=== PATIENT | female | born 1970 | race Caucasian/White ===

== ENCOUNTER → 2016-08-24 | Outpatient (CLI) | payer BC ==
[~2016-08-24] MED LIST: BCPILLS PO; BUPRTAB PO; CHOL100027 PO; FLUO20CA35 PO; INSPMPNVLG; LEVO112T2 PO; LEVO125T72 PO; LEVO137T3 PO; LEVOTAB2 PO; ONDA4TAB7 SL; PRLSR20 PO; SIMV80TA2 PO; [UNRECOGNIZED DRUG - OTHER] PO
--- NOTE | 2016-08-24 12:48 | MAMMOGRAPHY REPORT ---
BILATERAL DIGITAL SCREENING MAMMOGRAM TOMOSYNTHESIS WITH CAD: 08/24/2016 CLINICAL HISTORY: Routine screening. Patient has no complaints. TECHNIQUE: Breast tomosynthesis in addition to standard 2D mammography was performed. Current study was also evaluated with a Computer Aided Detection (CAD) system. COMPARISON: Comparison is made to exams dated: 08/23/2015 mammogram, 08/19/2014 mammogram, 08/20/2012 mammogram, 08/20/2012 ultrasound, 08/10/2011 mammogram, and 08/18/2013 mammogram - [facility]. BREAST COMPOSITION: The tissue of both breasts is extremely dense, which lowers the sensitivity of mammography. FINDINGS: No suspicious masses, calcifications, or areas of architectural distortion are noted in e ither breast. There has been no significant interval change compared to prior exams. IMPRESSION: ACR BI-RADS CATEGORY 1: NEGATIVE There is no mammographic evidence of malignancy. A 1 year screening mammogram is recommended. The p atient will receive written notification of the results. Approximately 10% of breast cancers are not detected with mammography. A negative mammographic repor t should not delay biopsy if a clinically suggestive mass is present. Diamond Kurtz M.D. /:08/24/2016 11:58:46 Dry Chain Worker: Gabriela Khoury, [facility] letter sent: Normal 1/2 BI-RADS Code: ACR BI-RADS Category 1: Negative
== END | disposition home or self-care (01) ==
LOC: C.MAMM 08:43
PROVIDERS: ATTEND Nurse Practitioner Family
DX: Z12.31 Encounter for screening mammogram for malignant neoplasm of breast (principal)

== ENCOUNTER 2016-09-20 21:11 | Emergency (ER) | payer BC ==
[~2016-09-20] VITALS: Ht 157.5 cm; Wt 67.5 kg
[~2016-09-20 21:11] MED LIST changes: -BCPILLS PO; -LEVO137T3 PO; -[UNRECOGNIZED DRUG - OTHER] PO
[2016-09-20 21:13] VITALS: TEMP 36.6; Ht 157.5 cm; Wt 67.5 kg
[2016-09-20] MEDS ORDERED: SODIUM CHLORIDE 0.9% 1000ML 2,000 ML IV STA (21:52)
[2016-09-20] MEDS ORDERED: ONDANSETRON INJ 2 MG/ML 2 ML VIAL IV STA (21:52)
[2016-09-20] MEDS ORDERED: BCPILLS PO (22:14)
[2016-09-20] MEDS ORDERED: [UNRECOGNIZED DRUG - OTHER] PO (22:14)
[2016-09-20 22:15] LABS: BASO % 0.6 %; BASO ABS # 0.08 K/uL (0-0.2); COMPLETE YES; EOS % 0.4 %; HEMATOCRIT 42.8 % (37-47); IG% 0.4 %; LYMPH % 19.7 %; LYMPH ABS # 2.76 K/uL (1.2-3.4); MEAN CELL VOLUME 89.9 fL (80-100); MEAN CORPUSCULAR HEMOGLOBIN 30.3 pg (25-34); MEAN CORPUSCULAR HGB CONC 33.6 g/dl (32-36); MEAN PLATELET VOLUME 11.8 fL (7.4-10.4); MONO % 4.9 %; PLATELET COUNT 229 K/uL (130-400); RED BLOOD COUNT 4.76 M/uL (4.2-5.4); WHITE BLOOD COUNT 14.02 K/uL (4.8-10.8)
[2016-09-20] MEDS ORDERED: LEVO137T3 PO (22:15)
[2016-09-20 22:22] LABS: BUN/CREATININE RATIO 21.2 (10-20); CREATININE 1.3 mg/dl (0.60-1.20); MAGNESIUM 1.9 mg/dl (1.8-2.4); POTASSIUM 3.7 mmol/L (3.5-5.1)
[2016-09-20 22:24] LABS: CALCIUM 9.5 mg/dl (8.5-10.1)
[2016-09-20 22:33] LABS: ALB/GLOB RATIO 1.1 (0.9-2); THYROID STIMULATING HORMONE 0.312 uIu/ml (0.300-4.500)
[2016-09-20 22:36] LABS: VEN BLOOD GAS BASE EXCESS 0.5 mmol/L; VENOUS BLOOD GAS PCO2 38 mmHg (38.0-50.0); VENOUS BLOOD GAS PO2 27 mmHg
[2016-09-20 22:37] LABS: VEN BLD GAS O2 SATURATION < 60.0 %
[2016-09-20 23:16] LABS: URINE APPEARANCE CLEAR (CLEAR); URINE BILIRUBIN NEG (NEG); URINE COLOR YELLOW; URINE NITRITE NEG (NEG); URINE SPECIFIC GRAVITY 1.037 (1.000-1.030); UROBILINOGEN NEG (NEG); ZZUR CULT IF INDIC CLEAN CATCH NO
[2016-09-20 23:22] LABS: MANUAL MICROSCOPIC REQUIRED? NO; REVIEW REQ? NO
--- NOTE | 2016-09-21 00:20 | EMERGENCY ROOM VISIT NOTE ---
History First contact with patient: 21:43 Chief Complaint: HYPERGLYCEMIA Stated Complaint: DIABETIC, [facility] Nursing Triage Summary: pt reports NV today , with high BSG at home today , + ketones in urine at home , uses insullin pump and adjusted but not feeling better History of Present Illness The patient is a 46 year old female who presents to the Emergency Department by private vehicle for evaluation of her elevated blood glucose levels. The patient reports that she was running on the treadmill today when she noticed her blood sugar began to increase. She noticed that her home was not working appropriately. She changed her needle and dosed herself. She has felt nausea as well as dizziness. The patient reports that she typically runs in the 1 teens, but most recent was found to be above 250. She was concerned and prompted her visit to the emergency department today. She rates her current discomfort as a 7/10. She denies any fevers, chills, recent illness, headaches , lightheadedness, nausea, vomiting, or abdominal pain. Review of Systems A complete 10-point Review of Systems was discussed with the patient, with pertinent positives and negatives listed in the History of Present Illness. All remaining Review of Systems questions can be considered negative unless otherwise specified. Social History Smoking Status: Former Smoker Alcohol Use: none Drug Use: none Marital Status: Occupation Status: employed Current/Historical Medications Scheduled Control Pills ( Control Pills), 1 TAB PO DAILY Bupropion Hcl (Wellbutrin Xl), 150 MG PO DAILY Fluoxetine (Prozac), 20 MG PO DAILY Insulin Aspart (novoLOG INSULIN PUMP ), 1 EA N/A UD Levothyroxine Sodium (Levothyroxine Sodium), 1 TAB PO DAILY Simvastatin (Zocor), 80 MG PO HS [Advocare Vits], 4 PKT PO DAILY Allergies Coded Allergies: No Known Allergies (Verified , 09/06/12) Physical Exam Vital Signs Date Time Temp Pulse Resp B/P Pulse Ox O2 Delivery O2 Flow Rate FiO2 09/21/16 00:56 86 20 113/61 96 09/20/16 22:50 90 18 124/54 99 Room Air 09/20/16 21:13 36.6 100 18 136/85 98 Room Air Pain Rating (0-10): 7 Physical Exam VITAL SIGNS - Vital signs and nursing notes were reviewed. GENERAL - 46-year-old female appearing her stated age who is in no acute distress. Communicates well with provider and answers questions appropriately. SKIN - Without rashes. HEAD - NC/AT. EYES - PERRL with EOMI bilaterally. Sclera anicteric. Palpebral conjunctiva pink and moist with no injection noted. EARS - No deformities of external structures noted on gross examination bilaterally. No pain elicited with palpation of the tragus bilaterally. External auditory canals without discharge or otorrhea. Tympanic membranes pearly deluca without retraction or bulging. No fluid or purulent material visualized behind the TM. Handle of malleus, umbo, cone of light, pars tensa/ flaccid all easily visualized. NOSE - Midline and without cyanosis. No epistaxis or purulent drainage noted. Septum midline without deviation or septal hematoma noted. MOUTH/OROPHARYNX - Without perioral cyanosis. Buccal mucosa pink and moist and without leukoplakia. Tongue midline with equal elevation of palate bilaterally. No tonsillar hypertrophy, erythema, or exudates noted. Good dentition noted. NECK - Neck with FROM. Supple to palpation. No lymphadenopathy noted. No nuchal rigidity. LUNGS - Chest wall symmetric without accessory muscle use, intercostals retractions, or central cyanosis. Normal vesicular breath sounds CTA B/L. No wheezes, rales, or rhonchi appreciated. CARDIAC - RRR with S1/S2. No murmur, rubs, or gallops appreciated. ABDOMEN - Abdominal contour flat without pulsations or visible masses. BS normoactive all four quadrants. No tenderness, palpable masses, hepatosplenomegaly, or ascites noted. EXTREMITIES - No clubbing or peripheral cyanosis. No pretibial edema present. +3 /5 radial, posterior tibial, and dorsalis pedis pulses palpated throughout. +5/ 5 strength noted in UE/LE bilaterally. NEUROLOGIC - Cranial nerves II through XII grossly intact. Sensory intact to light touch throughout. Patellar reflexes +2/4. PSYCH - A&Ox3 and cooperates fully with examiner. Pt is very pleasant and interacts well with examiner. Medical Decision & Procedures Laboratory Results 09/20/16 20:30 Red Blood Count 4.76, Mean Corpuscular Volume 89.9, Mean Corpuscular Hemoglobin 30.3, Mean Corpuscular Hemoglobin Concent 33.6, Mean Platelet Volume 11.8, Neutrophils (%) (Auto) 74.0, Lymphocytes (%) (Auto) 19.7, Monocytes (%) (Auto) 4.9, Eosinophils (%) (Auto) 0.4, Basophils (%) (Auto) 0.6, Neutrophils # (Auto) 10.39, Lymphocytes # (Auto) 2.76, Monocytes # (Auto) 0.68, Eosinophils # (Auto) 0.06, Basophils # (Auto) 0.08 09/20/16 20:30 Test 09/20/16 20:30 09/20/16 22:19 09/20/16 23:00 09/21/16 00:48 White Blood Count 14.02 K/uL (4.8-10.8) Red Blood Count 4.76 M/uL (4.2-5.4) Hemoglobin 14.4 g/dL (12.0-16.0) Hematocrit 42.8 % (37-47) Mean Corpuscular Volume 89.9 fL (80-100) Mean Corpuscular Hemoglobin 30.3 pg (25-34) Mean Corpuscular Hemoglobin Concent 33.6 g/dl (32-36) Platelet Count 229 K/uL (130-400) Mean Platelet Volume 11.8 fL (7.4-10.4) Neutrophils (%) (Auto) 74.0 % Lymphocytes (%) (Auto) 19.7 % Monocytes (%) (Auto) 4.9 % Eosinophils (%) (Auto) 0.4 % Basophils (%) (Auto) 0.6 % Neutrophils # (Auto) 10.39 K/uL (1.4-6.5) Lymphocytes # (Auto) 2.76 K/uL (1.2-3.4) Monocytes # (Auto) 0.68 K/uL (0.11-0.59) Eosinophils # (Auto) 0.06 K/uL (0-0.5) Basophils # (Auto) 0.08 K/uL (0-0.2) RDW Standard Deviation 42.9 fL (36.4-46.3) RDW Coefficient of Variation 13.0 % (11.5-14.5) Immature Granulocyte % (Auto) 0.4 % Immature Granulocyte # (Auto) 0.05 K/uL (0.00-0.02) Anion Gap 14.0 mmol/L (3-11) Est Creatinine Clear Calc Drug Dose 49.2 ml/min Estimated GFR () 57.4 Estimated GFR (Non- 49.5 BUN/Creatinine Ratio 21.2 (10-20) Calcium Level 9.5 mg/dl (8.5-10.1) Magnesium Level 1.9 mg/dl (1.8-2.4) Total Bilirubin 0.6 mg/dl (0.2-1) Aspartate Amino Transf (AST/SGOT) 26 U/L (15-37) Alanine Aminotransferase (ALT/SGPT) 28 U/L (12-78) Alkaline Phosphatase 49 U/L (45-117) Total Creatine Kinase 239 U/L (26-192) Total Protein 7.6 gm/dl (6.4-8.2) Albumin 4.0 gm/dl (3.4-5.0) Globulin 3.6 gm/dl (2.5-4.0) Albumin/Globulin Ratio 1.1 (0.9-2) Lipase 93 U/L (73-393) Thyroid Stimulating Hormone (TSH) 0.312 uIu/ml (0.300-4.500) Venous Blood pH 7.43 (7.36-7.41) Venous Blood Partial Pressure CO2 38 mmHg (38.0-50.0) Venous Blood Partial Pressure O2 27 mmHg Venous Blood HCO3 25 mmol/L Venous Blood Oxygen Saturation < 60.0 % Venous Blood Base Excess 0.5 mmol/L Urine Color YELLOW Urine Appearance CLEAR (CLEAR) Urine pH 5.0 (4.5-7.5) Urine Specific Larimore 1.037 (1.000-1.030) Urine Protein NEG (NEG) Urine Glucose (UA) 3+ (NEG) Urine Ketones 4+ (NEG) Urine Occult Blood NEG (NEG) Urine Nitrite NEG (NEG) Urine Bilirubin NEG (NEG) Urine Urobilinogen NEG (NEG) Urine Leukocyte Esterase NEG (NEG) Urine Test NEG (NEG) Bedside Glucose 70 mg/dl (70-90) Medications Administered Medications (Trade) Dose Ordered Sig/Monse Route Start Time Stop Time Status Last Admin Dose Admin Sodium Chloride (Nss 1000ml) 2,000 ml @ 999 mls/hr Q2H1M STAT IV 09/20/16 21:52 09/20/16 23:52 DC 09/20/16 22:03 999 MLS/HR Ondansetron HCl (Zofran Inj) 4 mg NOW STAT IV 09/20/16 21:52 09/20/16 21:54 DC 09/20/16 22:02 4 MG ED Course Patient was seen and evaluated by myself. Labs were drawn, saline lock in place. Patient was hydrated with 2000 mL of normal saline. She received 4 mg Zofran intravenously for nausea. I was approached by nursing staff informed the patient had put her pump site back in place and dose herself. She is now hypoglycemic. She responded to oral orange juice. Laboratory results demonstrate a moderate leukocytosis. The patient is not anemic. There are no significant electrolyte abnormalities. She has plus for ketones in her urine. The patient was reevaluated after 2 L of normal saline and feels much better at this time. Patient was educated on today's findings. She was educated on worrisome symptoms for return visit to the emergency department. Patient discharged home afebrile and in good condition. Medical Decision Given the patient's presentation and stated complaints, I did elect to perform the above-mentioned workup. The patient presents to the emergency department for evaluation of hyperglycemia. The patient's pump site had failed. She did reestablish her pump site, but not after feeling lightheaded and dizzy. She has no fever. There is been no recent illnesses. She is not acidotic. She responded well to IV fluids. She asked became hypoglycemic after dosing her self with her insulin. She responded well and clinically appears much better at this time. The patient was educated on worrisome symptoms for return visit to the emergency department. Patient discharged home in good condition. In the evaluation and treatment of this patient, the following differential diagnoses were considered: DKA, viral URI, metabolic toxicity, amongst others. Impression Primary Impression: Hypoglycemia Additional Impression: Complication of insulin pump Departure Information Dispostion Home / Self-Care Condition GOOD Referrals Shikha Vogt, C.R.N.P. (PCP) Patient Instructions My [facility] Additional Instructions You've been seen in the emergency department today for your hyperglycemia and pump malfunction. Keep close watch on her blood sugars for the next several hours. Return for any changing or worsening symptoms. Problem Qualifiers Additional Impression: Complication of insulin pump Device complication type: mechanical Mechanical complication type: displacement Encounter type: initial encounter Qualified Codes: T85.624A - Displacement of insulin pump, initial encounter
[2016-09-21 00:56] VITALS: BP 113/61; PULSE 86; O2SAT 96
[2017-05-02] MEDS ORDERED: MULT-726 PO (10:53)
[2017-05-02] MEDS ORDERED: ATOR10TA82 PO (10:53)
[2017-05-03] MEDS ORDERED: KETO10TA PO (11:36)
[2017-05-03] MEDS ORDERED: OXYC-57 PO (11:36)
== END 2016-09-21 00:57 | disposition home or self-care (01) ==
LOC: C.EDB 21:13
DX: E11.649 Type 2 diabetes mellitus with hypoglycemia without coma (principal); T85.624A Displacement of insulin pump, initial encounter; X58.XXXA Exposure to other specified factors, initial encounter; Z87.891 Personal history of nicotine dependence; Z79.4 Long term (current) use of insulin; Z79.899 Other long term (current) drug therapy

== ENCOUNTER → 2016-10-04 | Outpatient (CLI) | payer BC ==
[~2016-10-04] MED LIST changes: +ATOR10TA82 PO; +BCPILLS PO; -CHOL100027 PO; +KETO10TA PO; -LEVO112T2 PO; -LEVO125T72 PO; +LEVO137T3 PO; -LEVOTAB2 PO; +MULT-726 PO; -ONDA4TAB7 SL; +OXYC-57 PO; -PRLSR20 PO; +[UNRECOGNIZED DRUG - OTHER] PO
== END | disposition home or self-care (01) ==
LOC: C.LABSPEC 17:27
PROVIDERS: ATTEND Obstetrics & Gynecology
DX: N94.9 Unspecified condition associated with female genital organs and menstrual cycle (principal)

== ENCOUNTER → 2017-01-31 | Outpatient (CLI) | payer BC ==
[~2017-01-31] MED LIST changes: -ATOR10TA82 PO; -KETO10TA PO; -MULT-726 PO; -OXYC-57 PO
== END | disposition home or self-care (01) ==
LOC: C.PAPS 10:51
PROVIDERS: ATTEND Obstetrics & Gynecology
DX: Z01.419 Encounter for gynecological examination (general) (routine) without abnormal findings (principal)

== ENCOUNTER → 2017-05-03 | Day surgery (SDC) | payer BC ==
[2017-05-02 10:54] VITALS: Ht 158.8 cm; Wt 59.1 kg
[~2017-05-03] VITALS: Ht 158.8 cm; Wt 59.1 kg
[~2017-05-03] MED LIST changes: +ATOR10TA82 PO; +ATROPINE SULFATE 0.1 MG/ML 5ML SYR IV PRN; +BUPIVACAINE/EPINEPHRINE 0.25% 1:200,000 30 ML VIAL ONE; +BUPIVACAINE/EPINEPHRINE 0.5% MPF 1:200,000 30 ML VIAL ONE; +CEFAZOLIN 2000MG IV PUSH 10 ML IV SCH; +DEXAMETHASONE SOD INJ 4 MG/ML VIAL ONE; +EpHEDrine SULFATE INJ 50 MG/ML AMP IV PRN; +EpINEphrine INJ 1MG/ML AMP 1 MG/ML AMP ONE; +FENTANYL CITRATE INJ 50 MCG/1 ML 2 ML VIAL IV PRN; +FENTANYL CITRATE INJ 50 MCG/1 ML 2 ML VIAL ONE; +FLUMAZENIL 0.1 MG/1 ML 10 ML VIAL IV PRN; +HYDROmorphone INJ 2 MG/ML SYR/VIAL IV PRN; +KETO10TA PO; +LABETALOL HCL IV 5 MG/ML 20ML IV PRN; +LACTATED RINGER'S 1000ML 1,000 ML IV SCH; +LIDOCAINE HCL 2% 2 ML VIAL (20MG/ML) ONE; +MEPERIDINE HCL 25 MG/ML CARP IV PRN; +METHYLPREDNISOLONE ACETATE 80 MG/ML VIAL ONE; +MIDAZOLAM HCL 1 MG/ML 2ML VIAL ONE; +MULT-726 PO; +NALOXONE HCL 0.4 MG/1 ML VIAL/CARP IV PRN; +ONDANSETRON INJ 2 MG/ML 2 ML VIAL IV PRN; +ONDANSETRON INJ 2 MG/ML 2 ML VIAL ONE; +OXYC-57 PO; +OXYCODONE/ACETAMINOPHEN 5-325 TAB PO PRN; +PATIENT'S HEIGHT AND/OR WEIGHT NEEDED SCH; +PHENYLEPHRINE 100MCG/ML 5ML SYR IV PRN; +PROPOFOL IV EMULSION 10 MG/ML 20 ML VIAL IV ONE; +ROPIVACAINE 0.5% 5 MG/ML 30 ML VIAL ONE; -SIMV80TA2 PO; +SODIUM CHLORIDE 0.9% 1000ML 1,000 ML IV SCH; -[UNRECOGNIZED DRUG - OTHER] PO
--- NOTE | 2017-05-03 06:50 | History & Physical Bridge - SC ---
H&P Re-Evaluation Bridge Note: I have examined the patient, reviewed the History & Physical and in the interval since the performance of the History & Physical I have noted the following changes of clinical significance: No changes noted
--- NOTE | 2017-05-03 11:38 | Discharge Instructions-SurgCtr ---
Discharge Instructions Date of Service May 03, 2017. Visit Reason for Visit: Shoulder Pain Discharge Discharge Diagnosis / Problem: SAME ABOVE Discharge Goals Goal(s): Decrease discomfort, Improve function Activity Recommendations Activity Limitations: as noted below Lifting Limitations: gradually increase as tolerated Exercise/Sports Limitations: gradually increase as tolerated Shower/Bathe: tomorrow Driving or Machine Use: resume 1 day after discharge (AND WHEN OFF OF PAIN MEDICATION ) Anesthesia . Post Anesthesia Instructions: If you have had General Anesthesia or IV Sedation: * Do not drive today. * Resume driving when surgeon permits. * Do not make important decisions or sign legal documents today. * Call surgeon for: 1. Temperature elevations greater than 101 degrees F. 2. Uncontrollable pain. 3. Excessive bleeding. 4. Persistent nausea and vomiting. 5. Medication intolerance (nausea, vomiting or rash). * For nausea and vomiting use only clear liquids such as: tea, soda, bouillon until nausea subsides, then gradually increase diet as tolerated. * If you have any concerns or questions, call your surgeon's office. If physician is unavailable and it is an emergency, call 911 or go to the nearest emergency room. . Instructions / Follow-Up Instructions / Follow-Up MEDICATIONS: * Resume previous medications unless instructed otherwise by your surgeon. * Always take pain medication on a full stomach or with food to avoid upset stomach. * Do not drink alcohol or drive while taking narcotics. * Ibuprofen or Tylenol may be taken if narcotic not needed. SPECIAL CARE INSTRUCTIONS: __ None _X_ Keep extremity elevated and iced x 48 hours; apply ice 20-30 minutes 8-10 times/day. May remove at night. _X_ Sling (REMOVE AFTER 24 HOURS) __24 hrs/day __ Remove at night __ Shoulder Immobilizer __ 24 hrs/day __ Remove at night _X_ Dressing __ Maintain until seen in office, may shower with plastic over site _X_ Remove dressings in 24-48 hours and then may shower _X_ Cover incisions with band-aids after showering __ Do not remove steri-strips Call physician if chills or temperature rises above 102 degrees or pain unrelieved by prescribed pain medications at . . Diet Recommendations Home Diet: no limitations Fluid Restriction: None Procedures Procedures Performed: Right Shoulder Arthroscopic Capsular Release Pending Studies Studies pending at discharge: no Work Instructions Return To Work: 5 days (OR WHEN PAIN IS CONTROLLED ) Lifting Limitations: none Medical Emergencies . Who to Call and When: Medical Emergencies: If at any time you feel your situation is an emergency, please call 911 immediately. . Non-Emergent Contact Non-Emergency issues call your: Primary Care Provider Call Non-Emergent contact if: you have a fever, temperature is above 101.5 . . "Provider Documentation" section prepared by Jose Mendoza. .
--- NOTE | 2017-05-03 11:51 | OPERATIVE REPORT ---
DATE OF OPERATION: 05/03/2017 PREOPERATIVE DIAGNOSIS: Adhesive capsulitis of the right shoulder. POSTOPERATIVE DIAGNOSIS: Same. PROCEDURE: Right shoulder diagnostic arthroscopy with extensive debridement, lysis of adhesions and manipulation under anesthesia. SURGEON: Dr. Raza Singh. TOOL POLISHING MACHINE OPERATOR: Sacha Mendoza PA-C, whose assistance was necessary for helping positioning the arm and helping with instrumentation and closure. ANESTHESIA: General with a right interscalene nerve block. COMPLICATIONS: None. CONDITION: Stable to PACU. INDICATIONS: Erica is a pleasant 46-year-old female who presented to my office with complaints of chronic right shoulder pain and tightness. She is an insulin-dependent diabetic and hypothyroid. Clinical examination was diagnostic for adhesive capsulitis of the right shoulder. After failing conservative treatment, she elected to undergo arthroscopy. DESCRIPTION OF PROCEDURE: On 05/03/2017, she arrived at [facility] for the above procedure. She was seen in the preoperative holding area and the operative extremity was identified and signed. She was given a preoperative antibiotic and a right interscalene nerve block. She was taken back to the operating room, laid on the table in supine position and put under general anesthesia. She was then put into the beachchair position. The right shoulder was prepped and draped in sterile fashion. Time-out was done and the patient and operative extremity was properly identified. On preoperative physical examination, she had only about 30 degrees of external rotation and about 85 degrees of abduction with the scapula stabilized. A gentle manipulation was attempted under anesthesia, but I was unable to get any motion. A scope was placed into a posterior portal. Diagnostic arthroscopy showed no cartilage damage to the humeral head or the glenoid. There was a little fraying of the anterior superior labrum. The biceps tendon was intact and went through a normal size biceps chinyere mechanism. The supraspinatus, infraspinatus, teres minor, and subscapularis were all checked and intact. There was significant redness and tightness within the rotator interval. There was a little redness of the middle glenohumeral ligament, but the inferior glenohumeral ligament did not show any evidence of pathology. An anterior portal was made. An ablator was used to do a complete lysis of adhesions of the rotator interval. The interval was released from the biceps chinyere mechanism down to the undersurface of the coracoid. Significant time was spent to ensure complete release. A shaver was used to do an extensive debridement including debridement of the labrum and any remnants of the soft tissue capsule. Significant time was spent removing pathologic capsule back to stable margins. The middle glenohumeral ligament was also released. Care was taken to not disrupt the subscapularis or get down near the axillary nerve. The inferior glenohumeral ligament was examined extensively. There was no evidence of any pathology with the inferior glenohumeral ligament. I decided not to release that. Arthroscopic instruments were removed from the shoulder. Gentle manipulation was done under anesthesia. I was able to get 90 degrees of external rotation and 95 degrees of abduction and full forward flexion. The scope was placed back into the glenohumeral joint. Care was taken to ensure hemostasis and a shaver was used to debride any additional pathology. A spinal needle was placed for a cortisone injection. Arthroscopic instruments were removed. Portal sites were closed with 3-0 nylon. The shoulder was then injected with at 80 mg of Depo-Medrol and 5 mL of Marcaine. She was then placed in a soft dressing and a regular arm sling. She was then extubated, transferred to a [facility] and taken to the postanesthesia care unit in stable condition. She tolerated the procedure well. I attest to the content of the Intraoperative Record and any orders documented therein. Any exception s are noted below.
--- NOTE | 2017-05-03 11:54 | Anesthesia Progress Nt - [facility] ---
Anesthesia Post Op Note Date & Time May 03, 2017 at 11:54 Vital Signs Pain Intensity: 0 Vital Signs Past 12 Hours Date Time Temp Pulse Resp B/P (MAP) Pulse Ox O2 Delivery O2 Flow Rate FiO2 05/03/17 10:39 76 05/03/17 10:39 74 99 05/03/17 10:36 97/70 05/03/17 10:34 75 05/03/17 10:34 75 99 05/03/17 10:33 68 99 05/03/17 10:33 70 05/03/17 10:31 113/70 05/03/17 10:28 67 100 05/03/17 10:28 69 05/03/17 10:26 111/82 05/03/17 10:23 72 05/03/17 10:23 78 100 05/03/17 10:21 114/68 05/03/17 10:18 68 05/03/17 10:18 68 100 05/03/17 10:16 114/67 05/03/17 10:13 64 05/03/17 10:13 62 100 05/03/17 10:11 107/68 05/03/17 10:09 130/77 05/03/17 10:08 89 100 05/03/17 10:08 90 05/03/17 10:03 76 05/03/17 10:03 78 100 05/03/17 08:21 36.9 69 16 122/82 (95) 97 Room Air Notes Mental Status: alert / awake / arousable, participated in evaluation Pt Amnestic to Procedure: Yes Nausea / Vomiting: adequately controlled Pain: adequately controlled Airway Patency, RR, SpO2: stable & adequate BP & HR: stable & adequate Hydration State: stable & adequate Anesthetic Complications: no major complications apparent
[2017-05-03 12:40] VITALS: TEMP 37.3
[2017-05-03 13:08] VITALS: BP 114/75; PULSE 70; O2SAT 99
--- NOTE | 2017-05-03 16:10 | [facility] Post Operative Brief Note ---
Immediate Operative Summary Operative Date May 03, 2017. Pre-Operative Diagnosis Right Shoulder Pain Post-Operative Diagnosis same Procedure(s) Performed Right Shoulder Arthroscopic Capsular Release Surgeon DR Singh Waste Examiner Surgeon(s) TIM Miller Estimated Blood Loss 5ml Findings as above Specimens none Complication(s) None Disposition Recovery Room / PACU
== END | disposition home or self-care (01) ==
LOC: X.SURG 07:56
PROVIDERS: ATTEND Orthopaedic Surgery
DX: M75.01 Adhesive capsulitis of right shoulder (principal); E11.9 Type 2 diabetes mellitus without complications; E03.9 Hypothyroidism, unspecified; Z79.899 Other long term (current) drug therapy; Z79.4 Long term (current) use of insulin

== ENCOUNTER → 2017-08-27 | Outpatient (CLI) | payer OTHER ==
[~2017-08-27] MED LIST changes: -ATROPINE SULFATE 0.1 MG/ML 5ML SYR IV PRN; -BUPIVACAINE/EPINEPHRINE 0.25% 1:200,000 30 ML VIAL ONE; -BUPIVACAINE/EPINEPHRINE 0.5% MPF 1:200,000 30 ML VIAL ONE; -CEFAZOLIN 2000MG IV PUSH 10 ML IV SCH; -DEXAMETHASONE SOD INJ 4 MG/ML VIAL ONE; -EpHEDrine SULFATE INJ 50 MG/ML AMP IV PRN; -EpINEphrine INJ 1MG/ML AMP 1 MG/ML AMP ONE; -FENTANYL CITRATE INJ 50 MCG/1 ML 2 ML VIAL IV PRN; -FENTANYL CITRATE INJ 50 MCG/1 ML 2 ML VIAL ONE; -FLUMAZENIL 0.1 MG/1 ML 10 ML VIAL IV PRN; -HYDROmorphone INJ 2 MG/ML SYR/VIAL IV PRN; -LABETALOL HCL IV 5 MG/ML 20ML IV PRN; -LACTATED RINGER'S 1000ML 1,000 ML IV SCH; -LIDOCAINE HCL 2% 2 ML VIAL (20MG/ML) ONE; -MEPERIDINE HCL 25 MG/ML CARP IV PRN; -METHYLPREDNISOLONE ACETATE 80 MG/ML VIAL ONE; -MIDAZOLAM HCL 1 MG/ML 2ML VIAL ONE; -NALOXONE HCL 0.4 MG/1 ML VIAL/CARP IV PRN; -ONDANSETRON INJ 2 MG/ML 2 ML VIAL IV PRN; -ONDANSETRON INJ 2 MG/ML 2 ML VIAL ONE; -OXYCODONE/ACETAMINOPHEN 5-325 TAB PO PRN; -PATIENT'S HEIGHT AND/OR WEIGHT NEEDED SCH; -PHENYLEPHRINE 100MCG/ML 5ML SYR IV PRN; -PROPOFOL IV EMULSION 10 MG/ML 20 ML VIAL IV ONE; -ROPIVACAINE 0.5% 5 MG/ML 30 ML VIAL ONE; -SODIUM CHLORIDE 0.9% 1000ML 1,000 ML IV SCH
--- NOTE | 2017-08-28 13:03 | MAMMOGRAPHY REPORT ---
BILATERAL DIGITAL SCREENING MAMMOGRAM TOMOSYNTHESIS WITH CAD: 08/27/2017 CLINICAL HISTORY: Routine screening. TECHNIQUE: Breast tomosynthesis in addition to standard 2D mammography was performed. Current study was also evaluated with a Computer Aided Detection (CAD) system. COMPARISON: Comparison is made to exams dated: 08/24/2016 mammogram, 08/23/2015 mammogram, 08/19/2014 m ammogram, 08/18/2013 mammogram, 08/15/2012 mammogram, and 08/10/2011 mammogram - [facility] nter. BREAST COMPOSITION: The tissue of both breasts is extremely dense, which lowers the sensitivity of m ammography. FINDINGS: The parenchymal pattern is unchanged. No developing mass, architectural distortion or clus ter of suspicious microcalcifications is seen in either breast. IMPRESSION: ACR BI-RADS CATEGORY 2: BENIGN There is no mammographic evidence of malignancy. A 1 year screening mammogram is recommended. The pa tient will receive written notification of the results. Approximately 10% of breast cancers are not detected with mammography. A negative mammographic report should not delay biopsy if a clinically suggestive mass is present. Rima Manzanares M.D. ay/:08/27/2017 15:51:02 Wind Turbine Erector: Gunjan HAMILTON(R)(M), [facility] letter sent: Normal 1/2 BI-RADS Code: ACR BI-RADS Category 2: Benign
== END | disposition home or self-care (01) ==
LOC: C.MAMM 10:04
PROVIDERS: ATTEND Nurse Practitioner Family
DX: Z12.31 Encounter for screening mammogram for malignant neoplasm of breast (principal)